=== PATIENT | female | born 1975 | race Caucasian/White ===

== ENCOUNTER → 2018-10-23 | Outpatient (CLI) | payer OTHER ==
--- NOTE | 2018-10-23 09:25 | MM ---
Reason for exam: clinical finding. Last mammogram was performed 6 years and 10 months ago. History: Took estrogen beginning at age 34. Indicated problem(s): pain in the left breast. Physical Findings: Nurse did not find any significant physical abnormalities on exam. MG 3D Diag Mammo W/Cad TONA Bilateral CC and MLO view(s) were taken. Prior study comparison: December 12, 2011, mammogram. October 24, 2011, mammogram. There are scattered fibroglandular densities. There is no discrete abnormality. No significant new findings when compared with previous films. These results were verbally communicated with the patient and result sheet given to the patient on 10/23/18. ASSESSMENT: Negative, BI-RAD 1 RECOMMENDATION: Routine screening mammogram of both breasts in 1 year. Manage patient on a clinical basis.
== END | disposition home or self-care (01) ==
LOC: RADUSWWP 08:07
PROVIDERS: ATTEND Family Medicine
DX: R92.2 Inconclusive mammogram (principal); Z87.898 Personal history of other specified conditions
CPT/HCPCS: 77066; G0279; 77062

== ENCOUNTER → 2018-11-03 | Outpatient (CLI) | payer OTHER ==
[2018-11-03 18:23] LABS: T4, Free (Free Thyroxine) 1.2 ng/dL (0.80-1.80)
== END ==
LOC: LABWHC1 09:52
PROVIDERS: ATTEND Internal Medicine Interventional Cardiology
DX: E03.9 Hypothyroidism, unspecified (principal)
CPT/HCPCS: 36415; 84439; 84443; 84481

== ENCOUNTER → 2019-05-22 | Outpatient (CLI) | payer OTHER ==
--- NOTE | 2019-05-22 09:58 | MR ---
EXAMINATION TYPE: MR knee RT wo con DATE OF EXAM: 05/22/2019 COMPARISON: None HISTORY: Right knee pain TECHNIQUE: Multiplanar, multisequence imaging of the right knee is performed without IV contrast. FINDINGS: There is a partial tear posterior fibers of the anterior cruciate ligament. Posterior cruci ate ligaments intact. Medial collateral and lateral collateral ligaments are intact although there is a grade 2 MCL sprain. There is narrowing the medial compartment joint space with thinning of the femoral articular cartilag e compatible with grade III chondromalacia. There is a tear involving the posterior horn medial menis cus with partial extrusion of the meniscus.. Lateral meniscus is intact. Patellar and quadriceps tendons are intact. A trace amount of fluid in the suprapatellar bursa. Trejo lar cartilage maintained. No evidence of popliteal fossa cyst. IMPRESSION: 1. Partial ACL tear involving the posterior fibers. 2. MCL grade 2 sprain with medial meniscus tear. 3. There is chondromalacia involving the articular cartilage of the medial compartment femur
== END | disposition home or self-care (01) ==
LOC: RADMRIMAIN 07:09
PROVIDERS: ATTEND Family Medicine
DX: S83.511A Sprain of anterior cruciate ligament of right knee, initial encounter (principal); M94.261 Chondromalacia, right knee; S83.411A Sprain of medial collateral ligament of right knee, initial encounter

== ENCOUNTER 2021-03-15 17:17 | Observation (INO) | payer OTHER ==
[2021-03-15] MEDS ORDERED: ASPIRIN 81 MG PO STA (18:23)
[2021-03-15] MEDS ORDERED: NITROGLYCERIN SL TABS 0.4 MG TAB SUBLINGUAL STA (18:23)
--- NOTE | 2021-03-15 18:26 | ED ---
General Adult HPI - General Chief complaint: Chest Pain Stated complaint: Pain in neck and arm Time Seen by Provider: 03/15/21 17:40 Source: patient, RN notes reviewed Mode of arrival: ambulatory Limitations: no limitations - History of Present Illness Initial comments: Patient is a pleasant 45-year-old female presenting to the emergency department with left arm discomfort. Patient woke up with symptoms yesterday morning, patient states this woke her. Patient states discomfort is moderate and persistent since that time. No change of symptoms with position changes. No chest pain. No difficulty breathing. No history of similar symptoms previou sly. Patient did talk to her clinical training specialist who advised her to come to the emergency department. Patient sees Dr. Maddox secondary to history of bradycardia. - Related Data Home Medications Medication Instructions Recorded Confirmed Cholecalciferol [Vitamin D3] 5,000 unit PO DAILY 01/29/15 03/15/21 L.acidoph,Paracasei, B.lactis 1 cap PO DAILY 03/15/21 03/15/21 [Probiotic] Multivitamins, Thera [Multivitamin 1 tab PO DAILY 03/15/21 03/15/21 (formulary)] Allergies Allergy/AdvReac Type Severity Reaction Status Date / Time No Known Allergies Allergy Verified 03/15/21 20:04 Review of Systems ROS Statement: Those systems with pertinent positive or pertinent negative responses have been documented in the HPI. ROS Other: All systems not noted in ROS Statement are negative. Constitutional: Denies: fever Eyes: Denies: eye pain ENT: Denies: ear pain Respiratory: Denies: cough Cardiovascular: Denies: chest pain, palpitations Endocrine: Denies: fatigue Gastrointestinal: Denies: abdominal pain Genitourinary: Denies: urgency Musculoskeletal: Reports: as per HPI. Denies: back pain Skin: Denies: rash Neurological: Denies: weakness Past Medical History Past Medical History: No Reported History Additional Past Medical History / Comment(s): bradycardia History of Any Multi-Drug Resistant Organisms: None Reported Past Surgical History: Appendectomy, Hysterectomy Past Psychological History: No Psychological Hx Reported Smoking Status: Never smoker Past Alcohol Use History: None Reported Past Drug Use History: None Reported General Exam Limitations: no limitations General appearance: alert, in no apparent distress Head exam: Present: normocephalic Eye exam: Present: normal appearance Neck exam: Present: normal inspection, full ROM. Absent: tenderness Respiratory exam: Present: normal lung sounds bilaterally Cardiovascular Exam: Present: regular rate, normal rhythm Expanded Peripheral pulses: 2+: Radial (R), Radial (L), Posterior Tibialis (R), Posterior Tibialis (L) GI/Abdominal exam: Present: soft. Absent: tenderness Extremities exam: Present: normal inspection, full ROM. Absent: tenderness Back exam: Present: normal inspection. Absent: tenderness Neurological exam: Present: alert. Absent: motor sensory deficit Expanded Sensory exam: Upper Extremity Light Touch: Normal Motor strength exam: LUE: 5 Psychiatric exam: Present: normal affect, normal mood Skin exam: Present: normal color Course Vital Signs 03/15/21 03/15/21 03/15/21 17:43 18:55 19:42 Temperature 97.9 F 98.1 F Pulse Rate 49 L 58 L 53 L Respiratory 16 18 18 Rate Blood Pressure 131/86 108/72 114/78 O2 Sat by Pulse 99 100 99 Oximetry EKG Findings - EKG Comments: EKG Findings:: Size pericardial with a rate of 48. ND 134. QRS 92. QT 4:30. QTC 384. Normal axis. Normal QRS. No acute ST change. Medical Decision Making - Medical Decision Making Patient reevaluated and symptoms have improved with nitroglycerin. Patient updated on results and plan. Dr. De La O has been paged for admission, covering for Dr. Cunningham. - Lab Data Result diagrams: 03/15/21 18:26 03/15/21 18:26 Lab Results 03/15/21 03/15/21 03/15/21 Range/Units 18:26 18:26 18:26 WBC 6.5 (3.8-10.6) k/uL RBC 4.34 (3.80-5.40) m/uL Hgb 14.2 (11.4-16.0) gm/dL Hct 40.6 (34.0-46.0) % MCV 93.7 (80.0-100.0) fL MCH 32.8 (25.0-35.0) pg MCHC 35.1 (31.0-37.0) g/dL RDW 12.2 (11.5-15.5) % Plt Count 282 (150-450) k/uL MPV 7.1 Neutrophils % 33 % Lymphocytes % 49 % Monocytes % 6 % Eosinophils % 9 % Basophils % 1 % Neutrophils # 2.1 (1.3-7.7) k/uL Lymphocytes # 3.2 (1.0-4.8) k/uL Monocytes # 0.4 (0-1.0) k/uL Eosinophils # 0.6 (0-0.7) k/uL Basophils # 0.1 (0-0.2) k/uL PT 10.5 (9.0-12.0) sec INR 1.0 (<1.2) APTT 23.5 (22.0-30.0) sec D-Dimer 0.27 (<0.60) mg/L FEU Sodium 142 (137-145) mmol/L Potassium 4.1 (3.5-5.1) mmol/L Chloride 109 H (98-107) mmol/L Carbon Dioxide 27 (22-30) mmol/L Anion Gap 6 mmol/L BUN 18 H (7-17) mg/dL Creatinine 0.97 (0.52-1.04) mg/dL Est GFR (CKD-EPI)AfAm 81 (>60 ml/min/1.73 sqM) Est GFR (CKD-EPI)NonAf 71 (>60 ml/min/1.73 sqM) Glucose 92 (74-99) mg/dL Calcium 9.6 (8.4-10.2) mg/dL Magnesium 2.0 (1.6-2.3) mg/dL Total Bilirubin 0.2 (0.2-1.3) mg/dL AST 34 (14-36) U/L ALT 26 (4-34) U/L Alkaline Phosphatase 68 (38-126) U/L Troponin I (0.000-0.034) ng/mL Total Protein 7.1 (6.3-8.2) g/dL Albumin 4.3 (3.5-5.0) g/dL 03/15/21 Range/Units 18:26 WBC (3.8-10.6) k/uL RBC (3.80-5.40) m/uL Hgb (11.4-16.0) gm/dL Hct (34.0-46.0) % MCV (80.0-100.0) fL MCH (25.0-35.0) pg MCHC (31.0-37.0) g/dL RDW (11.5-15.5) % Plt Count (150-450) k/uL MPV Neutrophils % % Lymphocytes % % Monocytes % % Eosinophils % % Basophils % % Neutrophils # (1.3-7.7) k/uL Lymphocytes # (1.0-4.8) k/uL Monocytes # (0-1.0) k/uL Eosinophils # (0-0.7) k/uL Basophils # (0-0.2) k/uL PT (9.0-12.0) sec INR (<1.2) APTT (22.0-30.0) sec D-Dimer (<0.60) mg/L FEU Sodium (137-145) mmol/L Potassium (3.5-5.1) mmol/L Chloride (98-107) mmol/L Carbon Dioxide (22-30) mmol/L Anion Gap mmol/L BUN (7-17) mg/dL Creatinine (0.52-1.04) mg/dL Est GFR (CKD-EPI)AfAm (>60 ml/min/1.73 sqM) Est GFR (CKD-EPI)NonAf (>60 ml/min/1.73 sqM) Glucose (74-99) mg/dL Calcium (8.4-10.2) mg/dL Magnesium (1.6-2.3) mg/dL Total Bilirubin (0.2-1.3) mg/dL AST (14-36) U/L ALT (4-34) U/L Alkaline Phosphatase (38-126) U/L Troponin I <0.012 (0.000-0.034) ng/mL Total Protein (6.3-8.2) g/dL Albumin (3.5-5.0) g/dL - Radiology Data Radiology results: image reviewed (Chest x-ray shows atelectasis, no acute process. X-ray of the cervical spine shows C5 through C7 spondylosis without acute osseous abnormality.) Disposition Clinical Impression: Arm pain Disposition: ADMITTED IP TO THIS [facility] Is patient prescribed a controlled substance at d/c from ED?: No Referrals: Althea Moreno MD [Primary Care Provider] - 1-2 days Decision Time: 20:14
[2021-03-15 18:36] LABS: Basophils # (A) 0.1 k/uL (0-0.2); Basophils % (A) 1 %; Eosinophils # (A) 0.6 k/uL (0-0.7); Eosinophils % (A) 9 %; HCT 40.6 % (34.0-46.0); HGB 14.2 gm/dL (11.4-16.0); Lymphocytes # (A) 3.2 k/uL (1.0-4.8); Lymphocytes % (A) 49 %; MCH 32.8 pg (25.0-35.0); MCHC 35.1 g/dL (31.0-37.0); MCV 93.7 fL (80.0-100.0); Mean Platelet Volume 7.1; Monocytes # (A) 0.4 k/uL (0-1.0); Monocytes % (A) 6 %; Neutrophils # (A) 2.1 k/uL (1.3-7.7); Neutrophils % (A) 33 %; Platelet Count 282 k/uL (150-450); RBC 4.34 m/uL (3.80-5.40); RDW 12.2 % (11.5-15.5); WBC 6.5 k/uL (3.8-10.6)
[2021-03-15 18:44] LABS: Albumin 4.3 g/dL (3.5-5.0); Calcium 9.6 mg/dL (8.4-10.2); Potassium 4.1 mmol/L (3.5-5.1); Total Bilirubin 0.2 mg/dL (0.2-1.3); Total Protein 7.1 g/dL (6.3-8.2)
[2021-03-15 19:15] LABS: D-Dimer 0.27 mg/L FEU (<0.60); Partial Thromboplastin Time 23.5 sec (22.0-30.0); Prothrombin Time 10.5 sec (9.0-12.0)
--- NOTE | 2021-03-15 19:58 | XR ---
EXAMINATION TYPE: XR chest 2V DATE OF EXAM: 03/15/2021 COMPARISON: NONE HISTORY: Chest pain. TECHNIQUE: Frontal and lateral views of the chest are obtained. FINDINGS: There is mild perihilar and bibasilar hazy opacity. No pleural effusion, or pneumothorax s een. The cardiac silhouette size is within normal limits. The osseous structures are intact. IMPRESSION: Mild opacities, compatible with atelectasis.
--- NOTE | 2021-03-15 20:01 | XR ---
RESULT: HISTORY: pain TECHNIQUE: 5 views of the cervical spine were obtained. COMPARISON: None. FINDINGS: There is no acute fracture or subluxation. There is nonspecific straightening of the cervical lordosi s. There is moderate C5-C6 and mild C6-C7 spondylosis. There is associated mild to moderate left fora sang stenosis. Otherwise the vertebral body and disc heights are grossly preserved elsewhere. The C1 /C2 alignment is maintained. No significant prevertebral soft tissue abnormality. IMPRESSION: C5-C7 spondylosis without acute osseous abnormality.
[2021-03-15] MEDS ORDERED: NITROGLYCERIN SL TABS 0.4 MG TAB SUBLINGUAL PRN (20:22)
[2021-03-15] MEDS: NITROGLYCERIN OINT 1 INCH/GM PACKET TOPICAL SCH (20:48)
[2021-03-15 22:18] VITALS: TEMP 97.9
[2021-03-16] MEDS: NITROGLYCERIN OINT 1 INCH/GM PACKET TOPICAL SCH ×2 (01:43→05:44)
[2021-03-16 08:00] VITALS: BP 111/72; PULSE 48; RESP 18
[2021-03-16] MEDS ORDERED: ASPIRIN 325 MG TAB PO SCH (09:00)
--- NOTE | 2021-03-16 10:26 | P.CRDCN ---
History of Present Illness History of present illness: HISTORY OF PRESENTING ILLNESS This is a pleasant 45-year-old female past medical history significant for dyslipidemia, asymptomatic sinus bradycardia. She follows in the office with Dr. Maddox. We have been asked to see in consultation for left sided arm pain r/o cardiac cause. Patient is seen and examined at bedside, no acute distress. She states having left arm pain for the past 36 hours. She states it starts in the left back of her neck and comes down to her left arm. She states this lasted for about 36 hours. She is unable to describe any aggravating factors or alleviating factors. She states that she has not taken any medication for the pain. She states that sometimes raising her arms helps the pain. Movement does not change the pain intensity. Palpation also does not change the pain intensity. She denies any injury or heavy lifting. She denies chest pain, palpitations, shortness of breath lower extremity edema, fatigue, weakness, lightheadedness, syncope. Denies symptoms of orthopnea or PND. She states that she has a history of borderline high cholesterol. She denies history of AK, stroke, hypertension, diabetes. She states that she does have a family history of cardiac disease on her maternal side. Her dad did have a AK in his 40s. She currently does not take any cardiac medications. DIAGNOSTICS EKG reveals sinus bradycardia, heart rate 48, no significant STT wave abnormalities. EKG this morning is also sinus bradycardia, no changes. Telemetry tracings indicate sinus mechanism heart rate 45 to 50s. Chest xray mild lipase disease, compatible with atelectasis. Cervical spine x-ray revealed C5 to C7 spondylosis with acute osseous abnormality. Laboratory reviewed, CBC unremarkable, troponin negative 3, d-dimer negative, sodium 142, potassium 4.1, BUN 18, serum creatine 0.97, magnesium 2.0 Most recent echocardiogram 10/2015 in the office was normal with EF 55% Most recent stress echocardiogram test was in the office in 11/2018 which was negative, and no arrhythmia noted. REVIEW OF SYSTEMS At the time of my exam: CONSTITUTIONAL: Denies fever or chills. CARDIOVASCULAR: Denies chest pain, shortness of breath, orthopnea, PND or palpit ations. RESPIRATORY: Denies cough. GASTROINTESTINAL: Denies abdominal pain, diarrhea, constipation, nausea or vomiting. MUSCULOSKELETAL: Left-sided arm, left-sided neck pain NEUROLOGIC: Denies numbness, tingling, headacbe or weakness. ENDOCRINE: Denies fatigue, weight change, polydipsia or polyurina. GENITOURINARY: Denies burning, hematuria or urgency with micturation. HEMATOLOGIC: Denies history of anemia or bleeding. PHYSICAL EXAMINATION Blood pressure 111/72 heart rate 48 afebrile and maintaining oxygen saturation on 90% on room air. CONSTITUTIONAL: No apparent distress. HEENT: Head is normocephalic. Pupils are equal, round. Sclerae anicteric. Mucous membranes of the mouth are moist. No JVD. No carotid bruit. CHEST EXAMINATION: Lungs are clear to auscultation. No chest wall tenderness is noted on palpation or with deep breathing. HEART EXAMINATION: Regular rate and rhythm. S1, S2 heard. No murmurs, gallops or rub. ABDOMEN: Soft, nontender. Positive bowel sounds. EXTREMITIES: 2+ peripheral pulses, no lower extremity edema and no calf tenderness. SKIN: intact NEUROLOGIC EXAMINATION: Patient is awake, alert and oriented x3. ASSESSMENT Left sided neck and arm pain, acute coronary syndrome has been ruled out C5 to C7 spondylosis with acute osseous abnormality see on cervical spine xray History of dyslipidemia PLAN An acute coronary event has been ruled out with no EKG evidence of ischemia and negative cardiac enzymes. Obtain 2D echocardiogram and doppler study to assess cardiac structure and function. Perform stress echo test to assess for stress induced cardiac ischemia. If abnormal will consider coronary angiography. From a cardiology perspective, if stress echo test is normal in no acute findings on echocardiogram patient can be discharged and follow up with Dr. Maddox as an outpatient. Thank you kindly for this consultation. Nurse Practitioner note has been reviewed, I agree with a documented findings and plan of care. Patient was seen and examined. Past Medical History Past Medical History: No Reported History Additional Past Medical History / Comment(s): bradycardia History of Any Multi-Drug Resistant Organisms: None Reported Past Surgical History: Appendectomy, Hysterectomy Past Anesthesia/Blood Transfusion Reactions: No Reported Reaction Past Psychological History: No Psychological Hx Reported Smoking Status: Never smoker Past Alcohol Use History: None Reported Past Drug Use History: None Reported Medications and Allergies Home Medications Medication Instructions Recorded Confirmed Type Cholecalciferol [Vitamin D3] 5,000 unit PO DAILY 01/29/15 03/15/21 History L.acidoph,Paracasei, B.lactis 1 cap PO DAILY 03/15/21 03/15/21 History [Probiotic] Multivitamins, Thera [Multivitamin 1 tab PO DAILY 03/15/21 03/15/21 History (formulary)] Allergies Allergy/AdvReac Type Severity Reaction Status Date / Time No Known Allergies Allergy Verified 03/15/21 20:04 Physical Exam Vitals: Vital Signs Temp Pulse Pulse Resp BP BP Pulse Ox 03/16/21 07:00 97.9 F 48 L 18 111/72 98 03/16/21 01:51 20 03/16/21 01:31 97.9 F 57 L 18 113/79 97 03/15/21 21:20 97.9 F 51 L 20 116/75 99 03/15/21 20:51 98.1 F 52 L 18 117/84 99 03/15/21 19:42 53 L 18 114/78 99 03/15/21 18:55 98.1 F 58 L 18 108/72 100 03/15/21 17:43 97.9 F 49 L 16 131/86 99 Intake and Output 03/15/21 03/16/21 03/16/21 22:59 06:59 14:59 Other: Voiding Method Toilet # Voids 2 2 Weight 74.843 kg Results 03/15/21 18:26 03/15/21 18:26 Cardiac Enzymes 03/15/21 03/15/21 03/15/21 Range/Units 18:26 18:26 21:40 AST 34 (14-36) U/L Troponin I <0.012 <0.012 (0.000-0.034) ng/mL 03/16/21 Range/Units 00:23 AST (14-36) U/L Troponin I <0.012 (0.000-0.034) ng/mL Coagulation 03/15/21 Range/Units 18:26 PT 10.5 (9.0-12.0) sec APTT 23.5 (22.0-30.0) sec CBC 03/15/21 Range/Units 18:26 WBC 6.5 (3.8-10.6) k/uL RBC 4.34 (3.80-5.40) m/uL Hgb 14.2 (11.4-16.0) gm/dL Hct 40.6 (34.0-46.0) % Plt Count 282 (150-450) k/uL Comprehensive Metabolic Panel 03/15/21 Range/Units 18:26 Sodium 142 (137-145) mmol/L Potassium 4.1 (3.5-5.1) mmol/L Chloride 109 H (98-107) mmol/L Carbon Dioxide 27 (22-30) mmol/L BUN 18 H (7-17) mg/dL Creatinine 0.97 (0.52-1.04) mg/dL Glucose 92 (74-99) mg/dL Calcium 9.6 (8.4-10.2) mg/dL AST 34 (14-36) U/L ALT 26 (4-34) U/L Alkaline Phosphatase 68 (38-126) U/L Total Protein 7.1 (6.3-8.2) g/dL Albumin 4.3 (3.5-5.0) g/dL Current Medications Generic Name Dose Route Start Last Admin Trade Name Freq PRN Reason Stop Dose Admin Aspirin 325 mg 03/16/21 09:00 Aspirin 325 Mg Tab PO DAILY VLADIMIR Nitroglycerin 0.4 mg 03/15/21 20:22 Nitroglycerin Sl Tabs 0.4 Mg Tab SUBLINGUAL Q5M PRN Chest Pain Nitroglycerin 1 inch 03/15/21 20:45 03/16/21 05:44 Nitroglycerin Oint 1 Inch/Gm Packet TOPICAL Not Given Q6HR VLADIMIR Intake and Output 03/15/21 03/16/21 03/16/21 22:59 06:59 14:59 Other: Voiding Method Toilet # Voids 2 2 Weight 74.843 kg 03/15/21 18:26 03/15/21 18:26
[2021-03-16 11:10] LABS: Chol/HDL Ratio 4.63
--- NOTE | 2021-03-16 11:10 | ECHOF ---
Referral Reason:chest pain, LV function MEASUREMENTS -------- HEIGHT: 157.5 cm WEIGHT: 74.8 kg BP: RVIDd: 3.3 cm (< 3.3) IVSd: 1.2 cm (0.6 - 1.1) LVIDd: 4.8 cm (3.9 - 5.3) LVPWd: 1.2 cm (0.6 - 1.1) IVSs: 1.7 cm LVIDs: 2.8 cm LVPWs: 1.8 cm LAESV Index (A-L): 24.41 ml/m Ao Diam: 2.6 cm (2.0 - 3.7) AV Cusp: 2.1 cm (1.5 - 2.6) LA Diam: 3.1 cm (2.7 - 3.8) MV EXCURSION: 12.649 mm (> 18.000) MV EF SLOPE: 79 mm/s (70 - 150) EPSS: 0.6 cm MV E Adelso: 0.81 m/s MV DecT: 239 ms MV A Adelso: 0.51 m/s MV E/A Ratio: 1.58 RAP: 5.00 mmHg RVSP: 30.43 mmHg FINDINGS -------- Resting bradycardia (HR<60bpm). This was a technically adequate study. The left ventricular size is normal. There is mild concentric left ventricular hypertrophy. Overa ll left ventricular systolic function is normal with, an EF between 55 - 60 %. The right ventricle is normal in size. Normal LA size by volume 22+/-6 ml/m2. The right atrial size is normal. Interatrial and interventricular septum intact. There is no evidence of aortic regurgitation. There is no evidence of aortic stenosis. No mitral regurgitation. Mild tricuspid regurgitation present. There is no evidence of pulmonary hypertension. The right v entricular systolic pressure, as measured by Doppler, is 30.43mmHg. There is no pulmonic regurgitation present. The aortic root size is normal. Normal inferior vena cava with normal inspiratory collapse consistent with estimated right atrial pre ssure of 5 mmHg. There is no pericardial effusion. CONCLUSIONS -------- 1. The left ventricular size is normal. 2. There is mild concentric left ventricular hypertrophy. 3. Overall left ventricular systolic function is normal with, an EF between 55 - 60 %. 4. Mild tricuspid regurgitation present. DIRECT SUPPORT SPECIALIST: Diamante High RDCS
--- NOTE | 2021-03-16 11:28 | P.STRESS ---
- Stress Test Note Stress Test Results/Findings: Exam Performed: stress echo exercise Exam Date: 03/16/21 Reason for Exam: ARM PAIN, NECK PAIN, SHOULDER PAIN, CP Height: 5 ft 2 in Weight: 74.84 kg Protocol: STRESS ECHO Stage: 3 Duration of Exercise: 9:54 Resting Heart Rate: 54 Resting Blood Pressure: 119/67 Maximum Achieved Heart Rate: 174 Maximum Achieved Blood Pressure: 156/79 85% PMHR: 148 100% PMHR: 174 METS: 11.5 Technologist Comment: Stress Test Results/Findings: This is a 45-year-old female with history of palpitation smoking being evaluated for symptoms of chest pain and arm pain. Stress data: Baseline EKG showed sinus rhythm, normal AR interval and QRS duration with a diffuse nonspecific ST-T changes. Blood pressure at rest is 119/67 with pulse rate of 54. Patient walked on the Mauricio protocol for 9 minutes and 54 seconds achieving a maximal rate of 174 with blood pressure of 146/76. EKGs taken during and after the exercise did not reveal any significant changes from the baseline. Patient did not express any chest pain. Echo data: Baseline echo images show normal wall motion and thickening. Exercise echo images showed augmentation of wall motion and thickening in all the segments. Final impression: #1. Negative stress test #2. Negative stress echo.
--- NOTE | 2021-03-16 16:18 | P.HPIM ---
History of Present Illness Patient is a pleasant 45-year-old the female came in with the complaints of left-sided neck pain radiating to the left shoulder and the tingling and numbness in the left arm. Patient's symptoms completely resolved at this time patient the pain is moderate severity. Patient denied any shortness of breath palpitations or lightheadedness, orthopnea paroxysmal nocturnal dyspnea patient pain is nonpleuritic not associated with food. Her pain appears to be musculoskeletal. Patient had an EKG which did not show any acute ST-T wave changes patient has a spot cervical spine x-ray which showed C5 C7 spondylosis with nauseous abnormality d-dimer is negative patient had a recent echocardiogram showed normal ejection fraction patient's troponins are negative. Patient is mild delay sinus bradycardic which is chronic. REVIEW OF SYSTEMS: CONSTITUTIONAL: No fever, no malaise, no fatigue. HEENT: No recent visual problems or hearing problems. Denied any sore throat. CARDIOVASCULAR: No chest pain, orthopnea, PND, no palpitations, no syncope. PULMONARY: No shortness of breath, no cough, no hemoptysis. GASTROINTESTINAL: No diarrhea, no nausea, no vomiting, no abdominal pain. NEUROLOGICAL: No headaches, no weakness, no numbness. HEMATOLOGICAL: Denies any bleeding or petechiae. GENITOURINARY: Denies any burning micturition, frequency, or urgency. MUSCULOSKELETAL/RHEUMATOLOGICAL as mentioned in HPI ENDOCRINE: Denies any polyuria or polydipsia. The rest of the 14-point review of systems is negative. PHYSICAL EXAMINATION: GENERAL: The patient is alert and oriented x3, not in any acute distress. Well developed, well nourished. HEENT: Pupils are round and equally reacting to light. EOMI. No scleral icterus. No conjunctival pallor. Normocephalic, atraumatic. No pharyngeal erythema. No thyromegaly. CARDIOVASCULAR: S1 and S2 present. No murmurs, rubs, or gallops. PULMONARY: Chest is clear to auscultation, no wheezing or crackles. ABDOMEN: Soft, nontender, nondistended, normoactive bowel sounds. No palpable organomegaly. MUSCULOSKELETAL: No joint swelling or deformity. EXTREMITIES: No cyanosis, clubbing, or pedal edema. NEUROLOGICAL: Gross neurological examination did not reveal any focal deficits. SKIN: No rashes. Assessment and plan Neck pain with radiculopathy: Patient will benefit from a nonsteroidal anti- intermittent trace patient was ruled out acute coronary syndromes subsequently u nderwent stress test that was negative patient was subsequently discharged -C5 to C7 spondylosis -Dyslipidemia: Patient's LDL is a 114, further management as an outpatient -Rule out pulmonary embolism -Asymptomatic sinus bradycardia chronic Past Medical History Past Medical History: No Reported History Additional Past Medical History / Comment(s): bradycardia History of Any Multi-Drug Resistant Organisms: None Reported Past Surgical History: Appendectomy, Hysterectomy Past Anesthesia/Blood Transfusion Reactions: No Reported Reaction Past Psychological History: No Psychological Hx Reported Smoking Status: Never smoker Past Alcohol Use History: None Reported Past Drug Use History: None Reported Medications and Allergies Home Medications Medication Instructions Recorded Confirmed Type Cholecalciferol [Vitamin D3] 5,000 unit PO DAILY 01/29/15 03/15/21 History L.acidoph,Paracasei, B.lactis 1 cap PO DAILY 03/15/21 03/15/21 History [Probiotic] Multivitamins, Thera [Multivitamin 1 tab PO DAILY 03/15/21 03/15/21 History (formulary)] Allergies Allergy/AdvReac Type Severity Reaction Status Date / Time No Known Allergies Allergy Verified 03/15/21 20:04 Physical Exam Vitals: Vital Signs Temp Pulse Pulse Resp BP BP Pulse Ox 03/16/21 07:00 97.9 F 48 L 18 111/72 98 03/16/21 01:51 20 03/16/21 01:31 97.9 F 57 L 18 113/79 97 03/15/21 21:20 97.9 F 51 L 20 116/75 99 03/15/21 20:51 98.1 F 52 L 18 117/84 99 03/15/21 19:42 53 L 18 114/78 99 03/15/21 18:55 98.1 F 58 L 18 108/72 100 03/15/21 17:43 97.9 F 49 L 16 131/86 99 Intake and Output 03/16/21 03/16/21 03/16/21 06:59 14:59 22:59 Other: Voiding Method Toilet # Voids 2 Weight 74.84 kg Results CBC & Chem 7: 03/15/21 18:26 03/15/21 18:26 Labs: Abnormal Lab Results - Last 24 Hours (Table) 03/15/21 03/15/21 Range/Units 18:26 18:26 Chloride 109 H (98-107) mmol/L BUN 18 H (7-17) mg/dL Triglycerides 320.0 H (0.0-149.0) mg/dL Cholesterol 227 H (0-200) mg/dL VLDL Cholesterol, Calc 64.00 H (5.00-40.00) mg/dL Thrombosis Risk Factor Assmnt - Choose All That Apply Any of the Below Risk Factors Present?: Yes Each Factor Represents 1 point: Age 41-60 years, Obesity (BMI >25) Other Risk Factors: No Other congenital or acquired thrombophilia - If yes, enter type in comment: No Thrombosis Risk Factor Assessment Total Risk Factor Score: 2 Thrombosis Risk Factor Assessment Level: Low Risk
--- NOTE | 2021-03-16 16:19 | P.DS ---
Providers Date of admission: 03/15/21 20:22 Attending physician: Garth De La O Consults: 03/15/21 20:22 Consult Physician Urgent Consulting Provider: Norman Maddox Consult Reason/Comments: arm pain, rule out cardiac Do you want consulting provider notified?: Yes Primary care physician: Althea Moreno Hospital Course: Patient came in with neck pain and radicular pain in the left arm. Had a stress test which was negative patient has cervical spondylosis at the level of C5 to C7. For rest of the hospital physician course please refer to my HPI Plan - Discharge Summary Discharge Rx Participant: No New Discharge Prescriptions: No Action Cholecalciferol [Vitamin D3] 5,000 unit PO DAILY Multivitamins, Thera [Multivitamin (formulary)] 1 tab PO DAILY L.acidoph,Paracasei, B.lactis [Probiotic] 1 cap PO DAILY Discharge Medication List Cholecalciferol [Vitamin D3] 5,000 unit PO DAILY 01/29/15 [History] L.acidoph,Paracasei, B.lactis [Probiotic] 1 cap PO DAILY 03/15/21 [History] Multivitamins, Thera [Multivitamin (formulary)] 1 tab PO DAILY 03/15/21 [History] Follow up Appointment(s)/Referral(s): Norman Maddox MD [STAFF PHYSICIAN] - 2 Weeks Althea Moreno MD [Primary Care Provider] - 3 Days Discharge Disposition: HOME SELF-CARE
--- NOTE | 2021-03-17 09:19 | ECHOS ---
Stress Test Results/Findings: Exam Performed: stress echo exercise Exam Date: 03/16/21 Reason for Exam: ARM PAIN, NECK PAIN, SHOULDER PAIN, CP Height: 5 ft 2 in Weight: 74.84 kg Protocol: STRESS ECHO Stage: 3 Duration of Exercise: 9:54 Resting Heart Rate: 54 Resting Blood Pressure: 119/67 Maximum Achieved Heart Rate: 174 Maximum Achieved Blood Pressure: 156/79 85% PMHR: 148 100% PMHR: 174 METS: 11.5 Technologist Comment: Stress Test Results/Findings: This is a 45-year-old female with history of palpitation smoking being evaluated for symptoms of chest pain and arm pain. Stress data: Baseline EKG showed sinus rhythm, normal ME interval and QRS duration with a diffuse nonspecific ST-T changes. Blood pressure at rest is 119/67 with pulse rate of 54. Patient walked on the Mauricio protocol for 9 minutes and 54 seconds achieving a maximal rate of 174 with blood pressure of 146/76. EKGs taken during and after the exercise did not reveal any significant changes from the baseline. Patient did not express any chest pain. Echo data: Baseline echo images show normal wall motion and thickening. Exercise echo images showed augmentation of wall motion and thickening in all the segments. Final impression: #1. Negative stress test #2. Negative stress echo. BENEDICTO
== END 2021-03-16 12:30 | disposition home or self-care (01) ==
LOC: EC 17:17 → 6NMEDSUR 20:22
PROVIDERS: ADMIT Hospitalist; ATTEND Hospitalist
DX: M47.812 Spondylosis without myelopathy or radiculopathy, cervical region (principal); M79.602 Pain in left arm; R20.2 Paresthesia of skin; R00.1 Bradycardia, unspecified; E78.5 Hyperlipidemia, unspecified; E78.00 Pure hypercholesterolemia, unspecified; J98.11 Atelectasis; Z90.89 Acquired absence of other organs; Z90.710 Acquired absence of both cervix and uterus; Z82.49 Family history of ischemic heart disease and other diseases of the circulatory system
CPT/HCPCS: 99285; 36415; 93005; 93306; 93351; 85379; 80061; 80053; 83735; 84484 ×2; 85025; 85610; 85730; 72050; 71046; G0378 ×2

== ENCOUNTER → 2021-05-13 | Outpatient (CLI) | payer OTHER ==
--- NOTE | 2021-05-14 08:10 | MR ---
EXAMINATION TYPE: MR cervical spine wo con DATE OF EXAM: 05/13/2021 COMPARISON: Plain film 03/15/2021 HISTORY: Neck pain, headaches, LUE weakness x 6 mos. TECHNIQUE: Multiplanar, multisequence images of the cervical spine were acquired. C2-C3: No evidence for degenerative disc disease. No disc bulge/herniation or protrusion. No Canal stenosis. Foramina are patent bilaterally. C3-C4: No evidence for degenerative disc disease. No disc bulge/herniation or protrusion. No Canal stenosis. Foramina are patent bilaterally. C4-C5: No evidence for degenerative disc disease. No disc bulge/herniation or protrusion. No Canal stenosis. Foramina are patent bilaterally. C5-C6: There is uncovertebral joint hypertrophy, some facet arthropathy with some foraminal encroachm ent bilaterally, posterior extension endplate disc complex effaces the anterior thecal sac. C6-C7: Posterior broad-based disc bulge, extension of endplate disc complex effaces the anterior thec al sac mildly, there is some left-sided foraminal encroachment greater than right due to uncovertebra l joint hypertrophy and facet arthropathy. C7-T1: No evidence for degenerative disc disease. No disc bulge/herniation or protrusion. No Canal stenosis. Foramina are patent bilaterally. Cervical segments are intact. There is normal alignment. Cervical spinal cord is of normal signal. Craniovertebral junction relationships are within normal limits. Cervical vertebral bodies show pre served height, there is spondylosis with endplate discogenic marrow signal change, loss of disc heigh t signal greatest at C5-6, C6-7. There is no significant spinal stenosis. IMPRESSION: Degenerative disc disease, foraminal encroachment greatest at C5-6 and to lesser extent C6-7
== END | disposition home or self-care (01) ==
LOC: RADMRIMAIN 10:29
PROVIDERS: ATTEND Family Medicine
DX: M50.30 Other cervical disc degeneration, unspecified cervical region (principal); R20.2 Paresthesia of skin
CPT/HCPCS: 72141

== ENCOUNTER → 2021-08-18 | Outpatient (CLI) | payer OTHER ==
--- NOTE | 2021-08-21 11:35 | MM ---
Reason for exam: screening (asymptomatic). Last mammogram was performed 2 years and 10 months ago. History: Took estrogen beginning at age 34. Physical Findings: A clinical breast exam by your physician is recommended on an annual basis and results should be correlated with mammographic findings. MG Screening Mammo w CAD Bilateral CC and MLO view(s) were taken. Prior study comparison: October 23, 2018, bilateral MG 3d diag mammo w/cad [facility]. December 12, 2011, mammogram. There are scattered fibroglandular densities. There is no discrete abnormality. No significant changes when compared with prior studies. ASSESSMENT: Negative, BI-RAD 1 RECOMMENDATION: Routine screening mammogram of both breasts in 1 year.
== END | disposition home or self-care (01) ==
LOC: RADMAMWWP 09:17
PROVIDERS: ATTEND Family Medicine
DX: Z12.31 Encounter for screening mammogram for malignant neoplasm of breast (principal)
CPT/HCPCS: 77067